=== PATIENT | female | born 1970 | race Caucasian/White ===

== ENCOUNTER 2016-06-23 11:24 | Emergency (ER) | payer OTHER ==
[~2016-06-23] VITALS: Ht 157.5 cm; Wt 54.5 kg
[2016-06-23] MEDS ORDERED: KETOROLAC TROMETHAMINE 60 MG/2 ML VIAL IM ONE (11:45)
[2016-06-23] MEDS ORDERED: OxyCODONE HCL/ACETAMINOPHEN 10-325 MG TABLET PO ONE (11:45)
[2016-06-23 13:46] VITALS: BP 147/65
== END 2016-06-23 14:18 | disposition home or self-care (01) ==
LOC: EMS 11:27
DX: S33.5XXA Sprain of ligaments of lumbar spine, initial encounter (principal); M62.830 Muscle spasm of back; X58.XXXA Exposure to other specified factors, initial encounter; Y93.89 Activity, other specified; Y92.89 Other specified places as the place of occurrence of the external cause; Y99.8 Other external cause status
CPT/HCPCS: 96372; 99283; J1885